=== PATIENT | female | born 1930 | race Caucasian/White ===

== ENCOUNTER 2019-09-13 13:32 | Outpatient (CLI) | payer MEDICARE, OTHER ==
[~2019-09-13] VITALS: Ht 157.5 cm; Wt 55.8 kg
[2019-09-13 13:46] VITALS: BP 124/62
[2019-09-14] MEDS ORDERED: ATORVASTATIN CA20 MG ORAL (10:20)
[2019-09-14] MEDS ORDERED: ELIQUIS5 MG PO (10:20)
[2019-09-14] MEDS ORDERED: CARVEDILOL6.25 MG ORAL (10:20)
[2019-09-14] MEDS ORDERED: DM MED (10:20)
== END 2019-09-13 15:32 | disposition home or self-care (01) ==
LOC: PAN 13:32
DX: R10.9 Unspecified abdominal pain (principal)
CPT/HCPCS: G0463